=== PATIENT | female | born 2000 | race Native Hawaiian/Other Pacific Islander ===

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

== ENCOUNTER 2020-03-03 14:09 | Outpatient (CLI) | payer OTHER | END 2020-03-03 20:28 | disposition home or self-care (01) | LOC: LABW 14:09 | DX: R05 Cough (principal); R06.02 Shortness of breath; Z20.828 Contact with and (suspected) exposure to other viral communicable diseases | CPT/HCPCS: 87635; G2023; U00003 ==

== ENCOUNTER 2022-05-25 12:16 | Outpatient (CLI) | payer BC | END 2022-05-25 19:15 | disposition home or self-care (01) | LOC: RAD 12:16 | PROVIDERS: ATTEND Internal Medicine | DX: M79.671 Pain in right foot (principal) ==